=== PATIENT | female | born 1980 | race Two or more races ===

== ENCOUNTER 2019-05-22 19:01 | Emergency (ER) | payer OTHER ==
[~2019-05-22] VITALS: Ht 165.1 cm; Wt 81.6 kg
[2019-05-22] MEDS ORDERED: ALTACE10 MG (19:23)
[2019-05-22] MEDS ORDERED: BUDESONIDE0.5 MG/2 M IH (22:23)
[2019-05-22] MEDS ORDERED: XOPENEX0.63 MG/3 IH (22:23)
[2019-05-22] MEDS ORDERED: ZITHROMAX TRI-500 MG PO (22:23)
[2019-05-22] MEDS ORDERED: OSEL75CA PO (22:25)
[2019-05-22] MEDS ORDERED: FLONASE16 GM IH (22:28)
== END 2019-05-22 22:57 | disposition home or self-care (01) ==
LOC: ER 19:01 → EMR PED 19:02 → ER 19:02 → EMR PED 22:57
DX: J11.1 Influenza due to unidentified influenza virus with other respiratory manifestations (principal); J98.8 Other specified respiratory disorders; R50.9 Fever, unspecified

== ENCOUNTER 2024-12-09 08:46 | Outpatient (CLI) | payer OTHER ==
[~2024-12-09 08:46] MED LIST: ALTACE10 MG; BUDESONIDE0.5 MG/2 M IH; FLONASE16 GM IH; OSEL75CA PO; XOPENEX0.63 MG/3 IH; ZITHROMAX TRI-500 MG PO
[2024-12-09 09:35] LABS: BASO % 0.8 % (0.1-1.2); EOS # 0.09 (0.04-0.54); EOS % 1.4 % (0.7-7.0); LYMPH # 2.72 (1.18-3.74); LYMPH % 42.0 % (19.3-53.1); MEAN PLATELET VOLUME 8.70 fl (9.4-12.4); MONO # 0.29 (0.24-0.82); MONO % 4.5 % (4.7-12.5); NEUT # 3.30 (1.56-6.13); NEUT % 51.0 % (34.0-71.1); RED CELL DISTRIBUTION WIDTH 12.6 % (11.6-14.4)
[2024-12-09 09:39] LABS: URINE APPEARANCE Clear; URINE BILIRRUBIN Negative (NEGATIVE); URINE BLOOD Negative; URINE COLOR Yellow; URINE GLUCOSE Negative (NEGATIVE); URINE KETONE Negative (NEGATIVE); URINE LEUKOCYTE Trace; URINE NITRATE Negative; URINE PROTEIN Negative (NEGATIVE); URINE UROBILINOGEN 0.2 E.U./dl
[2024-12-09 09:40] VITALS: BP 129/82
[2024-12-09 09:42] LABS: URINE BACTERIA 542.2 uL (0.0-1933); URINE EPITHELIAL CELLS 52.8 uL (0.0-38.8); URINE RBC 4.2 uL (0.0-20.8); URINE WBC 33.8 uL (0.0-23.2)
[2024-12-09 09:46] LABS: URINE CAST 0.00 uL (0.0-1.40)
[2024-12-09 10:28] LABS: ALT/SGPT 18.0 U/L (12-78); AST/SGOT 10.0 U/L (15-37); BILIRUBIN TOTAL 0.32 mg/dL (0.3-1.2); BUN CREA RATIO 19.0 (7.0-25.0); CREATININE SERUM 0.78 mg/dL (0.55-1.02); GFR 80.99; GLOBULINA 4.1 G/DL (2.4-3.5); GLUCOSE FASTING 89.0 mg/dL (65-100); OSMOLALITY SERUM 278.0 MOSM/KG (275-295)
[2024-12-09 10:37] LABS: INR 0.98
== END 2024-12-09 08:58 | disposition home or self-care (01) ==
LOC: RAD 08:46
PROVIDERS: ATTEND Obstetrics & Gynecology
DX: N91.1 Secondary amenorrhea (principal); R05.9 Cough, unspecified; R07.9 Chest pain, unspecified

== ENCOUNTER 2024-12-09 09:58 | Outpatient (CLI) | payer OTHER | END 2024-12-09 10:01 | disposition home or self-care (01) | LOC: RAD 09:58 | PROVIDERS: ATTEND Family Medicine | DX: M25.561 Pain in right knee (principal) ==

== ENCOUNTER 2024-12-18 05:34 | Day surgery (SDC) | payer OTHER ==
[~2024-12-18 05:34] MED LIST changes: +MICARDIS80 MG PO
[2024-12-18] MEDS ORDERED: CHLORHEXIDINE GLUCONATE 120 ML BOTTLE TOP ONE (07:13)
[2024-12-18] MEDS ORDERED: POVIDONE-IODINE 118 ML BOTT TOP ONE (07:13)
[2024-12-18] MEDS ORDERED: PROMETHAZINE HCL 50 MG/ML AMPUL IM ONE (10:00)
[2024-12-18] MEDS ORDERED: MORPHINE SULFATE 4 MG/ML VIAL IV PRN (10:00)
[2024-12-18] MEDS ORDERED: MORPHINE SULFATE 4 MG/ML VIAL IV ONE (10:45)
[2024-12-18 16:23] VITALS: BP 101/51; O2SAT 100
== END 2024-12-18 16:20 | disposition home or self-care (01) ==
LOC: CIR.AMB 05:34
PROVIDERS: ATTEND Obstetrics & Gynecology
DX: N84.0 Polyp of corpus uteri (principal)